=== PATIENT | female | born 1980 | race Caucasian/White ===

== ENCOUNTER 2019-09-04 17:44 | Emergency (ER) | payer BC ==
[2019-09-04 17:48] VITALS: BP 123/90; PULSE 126; TEMP 97.6
[2019-09-04] MEDS ORDERED: HYDROcodone/APAP 5-325MG 1 EACH TAB PO STA (17:57)
--- NOTE | 2019-09-04 18:20 | XR ---
EXAMINATION TYPE: XR ankle complete LT DATE OF EXAM: 09/04/2019 COMPARISON: NONE HISTORY: Pain FINDINGS: Three views of the ankle demonstrate widening the tibial fibular synchondrosis an oblique fracture in volving the distal fibula mildly displaced by approximately 2 mm. Ankle mortise is symmetric. Tiny sp ur along the medial malleolus. Remaining osseous structures intact. Plantar calcaneal spur seen. IMPRESSION: 1. Oblique fracture distal fibula with mild displacement measuring approximately 2 mm.
[2019-09-04] MEDS ORDERED: ACET/COD 300 MG/30 MG STARTER PACK 6 TAB BTL PO STA (18:38)
--- NOTE | 2019-09-04 18:40 | ED ---
Lower Extremity Injury HPI - General Chief Complaint: Extremity Injury, Lower Stated Complaint: left ankle injury Time Seen by Provider: 09/04/19 17:52 Source: patient, RN notes reviewed Mode of arrival: wheelchair Limitations: no limitations - History of Present Illness Initial Comments: 29-year-old female presents emergency from chief complaint of left ankle injury. Patient states she twisted her ankle when she fell down stairs on the grass. Patient denies any head injury no loss conscious. She recommended to left lateral ankle pain no prior fractures. - Related Data Previous Rx's Medication Instructions Recorded Ibuprofen [Motrin] 600 mg PO Q8HR PRN #20 tab 09/04/19 Allergies Allergy/AdvReac Type Severity Reaction Status Date / Time No Known Allergies Allergy Verified 09/04/19 17:46 Review of Systems ROS Statement: Those systems with pertinent positive or pertinent negative responses have been documented in the HPI. ROS Other: All systems not noted in ROS Statement are negative. Past Medical History Past Medical History: Diabetes Mellitus, Hypertension History of Any Multi-Drug Resistant Organisms: None Reported Past Surgical History: Section Past Psychological History: No Psychological Hx Reported Smoking Status: Never smoker Past Alcohol Use History: Occasional Past Drug Use History: None Reported General Exam Limitations: no limitations General appearance: alert, in no apparent distress Head exam: Present: atraumatic, normocephalic, normal inspection Eye exam: Present: normal appearance, PERRL, EOMI. Absent: scleral icterus, conjunctival injection, periorbital swelling Respiratory exam: Present: normal lung sounds bilaterally. Absent: respiratory distress, wheezes, rales, rhonchi, stridor Cardiovascular Exam: Present: regular rate, normal rhythm, normal heart sounds. Absent: systolic murmur, diastolic murmur, rubs, gallop, clicks Extremities exam: Present: other (Tenderness to left lateral malleoli region moderate swelling and ecchymosis, no foot tenderness no proximal tib-fib tenderness) Course Vital Signs 09/04/19 17:46 Temperature 97.6 F Pulse Rate 126 H Respiratory 24 Rate Blood Pressure 123/90 O2 Sat by Pulse 100 Oximetry Procedures - Orthopedic Splinting/Casting Injury #1 Side: left Lower Extremity Injury Location: short leg, ankle Lower Extremity Immobilizer: posterior splint, synthetic pre-padded splint Other Orthopedic Equipment: crutches Medical Decision Making - Medical Decision Making X-ray shows oblique fracture the distal fibula on the left Disposition Clinical Impression: Closed fracture of left distal fibula Disposition: HOME SELF-CARE Condition: Stable Instructions (If sedation given, give patient instructions): Ankle Fracture (ED) Additional Instructions: Please return to the Emergency Department if symptoms worsen or any other concerns. Prescriptions: Ibuprofen [Motrin] 600 mg PO Q8HR PRN #20 tab PRN Reason: Pain Is patient prescribed a controlled substance at d/c from ED?: No Referrals: Marcelle Urbina MD [Primary Care Provider] - 1-2 days Eben Johnson DO [Doctor of Osteopathic Medicine] - 1-2 days Time of Disposition: 18:40
[2019-09-04 19:12] VITALS: RESP 17
== END 2019-09-04 19:12 | disposition home or self-care (01) ==
LOC: EC 17:44
DX: S82.832A Other fracture of upper and lower end of left fibula, initial encounter for closed fracture (principal); X50.1XXA Overexertion from prolonged static or awkward postures, initial encounter; Y92.59 Other trade areas as the place of occurrence of the external cause
CPT/HCPCS: 29515; 99283

== ENCOUNTER 2019-09-10 08:47 | Day surgery (SDC) | payer BC ==
[2019-09-08 15:51] VITALS: BMI 38.6
--- NOTE | 2019-09-09 20:29 | HP ---
HISTORY AND PHYSICAL DATE OF SURGERY: 09/10/2019 Ginny Hardy is a 38-year-old patient seen with a displaced left ankle lateral malleolar fracture along with a syndesmotic injury to the left ankle. I recommended open reduction, internal fixation of left ankle lateral malleolar fracture with repair, syndesmotic injury. I reviewed the procedure, risks, complications, benefits, recovery. She was agreeable. Consent was obtained. PAST MEDICAL HISTORY: Hypertension, insulin-dependent diabetes, hyperlipidemia. PAST SURGICAL HISTORY: Noncontributory. DAILY MEDICATIONS: Amlodipine, Humalog, Lipitor, lisinopril. ALLERGIES: NONE. SOCIAL HISTORY: She denies current tobacco use. PHYSICAL EVALUATION OF THE LEFT ANKLE: There is diffuse swelling, tenderness along the lateral joint line, tenderness along the syndesmotic area, limited range of motion of the ankle secondary to pain. No significant tenderness along the medial malleolus. Distal neurovascular exam intact. Homans and Josias are both negative. RADIOGRAPHS: Radiographs of the left ankle revealed a displaced lateral malleolar fracture with a syndesmotic injury and mortise widening. IMPRESSION: 1. Left ankle displaced lateral malleolar fracture with syndesmotic injury. 2. Hypertension. 3. Hyperlipidemia. 4. Insulin-dependent diabetes. PLAN: Open reduction, internal fixation of left ankle lateral malleolar fracture with repair of the syndesmosis. MMODL / IJN: [id number] /
[~2019-09-10 08:47] MED LIST: LIDOCAINE 1% (10MG/ML) FOR IV START INTRADERMA PRN; METOCLOPRAMIDE 5 MG/ML 2 ML VIAL IVP PRN; MIDAZOLAM 2 MG/2 ML VIAL IV PRN
[2019-09-10 09:44] LABS: Glucose,Whole Blood 194 mg/dL (75-99)
[2019-09-10] MEDS: LACTATED RINGERS 1,000 ML IV SCH ×2 (09:46→10:57)
[2019-09-10] MEDS: DEXAMETHASONE SOD PHOSPHATE 10 MG/ML 1 ML VIAL IV ONE ×2 (10:07→13:25)
[2019-09-10] MEDS: ONDANSETRON 4 MG/2 ML VIAL IVP ONE ×2 (10:07→13:25)
[2019-09-10] MEDS ORDERED: SCOPOLAMINE 1.5MG/72HR PATCH TRANSDERM ONE (10:08)
[2019-09-10 10:10] LABS: African American GFR (CKD) >90 (>60 ml/min/1.73 sqM); Anion Gap 10 mmol/L; Blood Urea Nitrogen 11 mg/dL (7-17); Carbon Dioxide 24 mmol/L (22-30); Chloride 108 mmol/L (98-107); Non-African American GFR(CKD) >90 (>60 ml/min/1.73 sqM); Sodium 142 mmol/L (137-145)
[2019-09-10] MEDS ORDERED: fentaNYL (PF) 50 MCG/ML 2 ML AMP IVP ONE ×2 (10:28→10:33)
[2019-09-10] MEDS ORDERED: MIDAZOLAM 2 MG/2 ML VIAL IVP ONE ×2 (10:28→10:33)
[2019-09-10] MEDS ORDERED: MIDAZOLAM 2 MG/2 ML VIAL ONE (10:56)
[2019-09-10] MEDS ORDERED: LIDOCAINE 1% INJ 10MG/ML (20 ML MDV) ONE (10:56)
[2019-09-10] MEDS ORDERED: PROPOFOL 10 MG/ML 20 ML VIAL IV ONE (10:56)
[2019-09-10] MEDS ORDERED: ROPIVACAINE 5 MG/ML 30 ML VIAL ONE (10:56)
[2019-09-10] MEDS ORDERED: SUCCINYLCHOLINE CHLORIDE 100 MG/5 ML SYR IV ONE (10:56)
[2019-09-10] MEDS ORDERED: fentaNYL (PF) 50 MCG/ML 2 ML AMP ONE (10:56)
[2019-09-10] MEDS ORDERED: HYDROmorphone (PF) 1 MG/ML ONE (10:56)
[2019-09-10] MEDS ORDERED: ceFAZolin 1,000 MG in SODIUM CHLORIDE 0.9% 1,000 ML IRRIGATION ONE (11:25)
[2019-09-10] MEDS ORDERED: LACTATED RINGERS 1,000 ML IV ONE (11:34)
[2019-09-10] MEDS ORDERED: HYDROmorphone 0.5 MG/0.5 ML SYRINGE IVP PRN (12:07)
[2019-09-10] MEDS ORDERED: HYDROmorphone 1 MG/ML 1 ML SYRINGE IVP PRN (12:07)
[2019-09-10] MEDS ORDERED: ONDANSETRON 4 MG/2 ML VIAL IVP PRN (12:07)
--- NOTE | 2019-09-10 12:08 | FL ---
EXAMINATION TYPE: FL guidance operating room, XR ankle limited LT DATE OF EXAM: 09/10/2019 CLINICAL HISTORY: Left ankle fracture. TECHNIQUE: Fluoroscopy. Limited 2 views left ankle. COMPARISON: Left ankle xray 6 days ago. Left ankle x-ray 2 days ago. FINDINGS: Fluoroscopic guidance was provided during open reduction and internal fixation procedure p erformed by Dr. Johnson. A total of 9 seconds of fluoroscopic time was utilized during the procedu re and 3 spot fluoroscopic intraoperative images are acquired. Images acquired show placement of a lateral fixating plate through fracture of the lateral malleolus with suspected an additional radiolucent distal tibial fibular fixating screw. Some ankle mortise asy mmetry remains present. IMPRESSION: As Above.
[2019-09-10] MEDS ORDERED: hydrOXYzine PAMOATE 25 MG CAP PO PRN (12:10)
[2019-09-10] MEDS ORDERED: HYDROcodone/APAP 7.5-325MG 1 EACH TAB PO PRN ×2 (12:10→12:11)
--- NOTE | 2019-09-10 12:17 | P.OP ---
Date of Procedure: 09/10/19 Preoperative Diagnosis: Displaced left ankle lateral malleolus fracture with syndesmotic disruption and mortise widening Postoperative Diagnosis: Same Procedure(s) Performed: 1. Open reduction and internal fixation left ankle lateral malleolus fracture 2. Open reduction internal fixation left ankle syndesmosis Implants: 1. Arthrex 6 hole one third semitubular plate with 5-appropriate length cortical and cancellus screws 2. Arthrex syndesmosis tight rope XP Endobutton's Anesthesia: GETA, regional (Attempted adductor canal block), local Surgeon: Eben Johnson Chief Of Surgery #1: Abraham Lew Estimated Blood Loss (ml): 11 Pathology: none sent Condition: stable Disposition: PACU Indications for Procedure: 38-year-old patient seen with left ankle displaced lateral malleolar fracture with concomitant syndesmotic injury. I recommended ORIF left ankle lateral malleolar fracture with repair of the syndesmotic injury. Patient was agreeable and consent was obtained. Operative Findings: See description of procedure Description of Procedure: The patient was taken to the operative suite. The patient did receive a adductor canal block which did not seem to be working well. The patient underwent a general anesthetic by the department of anesthesia. The patient did received preoperative IV antibiotics. A well-padded tourniquet was placed proximal left thigh. The left lower extremity was prepped and draped in the normal sterile orthopedic fashion. The extremity was elevated and tourniquet insufflated to 300. A standard lateral incision was made sharply through skin. We carefully bluntly dissected down the fracture site. Periosteal elevation was utilized to define the fracture. The displaced lateral lateral malleolar fracture was now reduced and held in position with [id number] reduction bone clamp. I chose a Arthrex 6-hole one third semitubular plate and appropriately contoured. It was secured to the lateral malleolus. I now drilled 2 holes proximally and distally and insert appropriate length cortical/cancellous screws all of which had good bite and fixation. The C-arm was brought into the operative field this point confirming adequate positioning of our internal fixation and adequate reduction of the lateral malleolar fracture. At this point we drilled a guidewire across the third distal screw hole at about a 30 angle into the tibia. We now inserted our cannulated drill bit and reamed over that guidewire. I now held the ankle in a neutral position through the entire process and now passed my Arthrex tight rope XP implant exiting out the medial aspect of the distal tibia. We now flipped the button and retrieve the insertion handle back. I now see was the Endobutton into the lateral plate hole. I now tensioned and the sutures utilizing the tensioning handles. We now checked our construct under image intensification and noted zoroastrianism of the mortise with good stability. The suture ends were clipped. I now introduced one final screw through the third most proximal hole and insert appropriate length cortical screw. I now review the entire construct under AP lateral and oblique intraoperative imaging and noted adequate positioning of the fracture and hardware in good zoroastrianism of the mortise. Spot films were obtained to document that. The wound was irrigated. The subcutaneous soft tissues were repaired with 2-0 Vicryl. The skin was approximated with skin ben. The wound was infiltrated with 20 mL quarter percent plain Marcaine for postoperative analgesia.. Sterile dressings were applied. The tourniquet was released with good immediate capillary refill the entire foot and digits noted. The patient is now placed into a modified bulky Fleming splint with ankle in position. The patient was then awakened, transferred to recovery stable condition. Dewayne MOODY assisted procedure.
[2019-09-10] MEDS ORDERED: ONDANSETRON ODT 4 MG TAB PO ONE (12:32)
[2019-09-10] MEDS: HYDROmorphone 0.5 MG/0.5 ML SYRINGE IVP PRN ×3 (12:32→13:21)
[2019-09-10] MEDS ORDERED: KETOROLAC 30 MG/ML 1 ML VIAL IVP ONE (12:33)
--- NOTE | 2019-09-10 12:36 | P.ANPRN ---
Procedure Note - Anesthesia - Nerve Block Performed Left Adductor Canal Single Time Out Performed: Yes (1026) Date of Procedure: 09/10/19 Procedure Start Time: 10:28 Procedure Stop Time: 10:33 Location of Patient: PreOp Indication: Acute Post-Operative Pain, Requested by Surgeon Specifically requested for management of pain by DrEdgar: Eben Johnson Sedation Type: Sedate with meaningful contact maintained Preparation: Sterile Prep Position: Supine Catheter: None Needle Types: Pajunk Needle Gauge: 20 (4in) Ultrasound used to visualize needle placement: Yes Ultrasound used to observe medication spread: Yes Injectate: 0.5% Ropivacaine (see comment for volume) (15cc) Blood Aspirated: No Pain Paresthesia on Injection Noted: No Resistance on Injection: Normal Image Stored and Saved: Yes Events: Uneventful and Well Tolerated Left Popliteal Single Time Out Performed: Yes (102) Date of Procedure: 09/10/19 Procedure Start Time: 10:34 Procedure Stop Time: 10:38 Location of Patient: PreOp Indication: Acute Post-Operative Pain, Requested by Surgeon Specifically requested for management of pain by DrEdgar: Eben Johnson Sedation Type: Sedate with meaningful contact maintained Preparation: Sterile Prep Position: Supine Needle Types: Pajunk Needle Gauge: 20 (4in) Ultrasound used to visualize needle placement: Yes Ultrasound used to observe medication spread: Yes Injectate: 0.5% Ropivacaine (see comment for volume) (15cc) Blood Aspirated: No Pain Paresthesia on Injection Noted: No Resistance on Injection: Normal Image Stored and Saved: Yes Events: Uneventful and Well Tolerated
[2019-09-10 13:00] LABS: Glucose,Whole Blood 205 mg/dL (75-99)
[2019-09-10] MEDS ORDERED: INSULIN ASPART (NovoLOG) 100 UNIT/ML VIAL SQ ONE (13:04)
[2019-09-10 17:08] LABS: Glucose,Whole Blood 244 mg/dL (75-99)
[2019-09-10] MEDS: traMADol 50 MG TAB PO SCH ×2 (17:16→21:16)
[2019-09-10] MEDS: INSULN ASP PRT/INSULIN ASPART 100 UNIT/ML 10 ML VIAL SQ SCH (17:16)
[2019-09-10 20:49] LABS: Glucose,Whole Blood 204 mg/dL (75-99)
[2019-09-10] MEDS ORDERED: LISINOPRIL 20 MG TAB PO SCH (21:00)
[2019-09-10] MEDS ORDERED: INSULIN DETEMIR (LEVEMIR) 100 UNIT/ML SYR SQ SCH (21:00)
[2019-09-10] MEDS ORDERED: ATORVASTATIN 20 MG TAB PO SCH (21:00)
[2019-09-10] MEDS ORDERED: PANTOPRAZOLE 40 MG TABLET PO SCH (21:00)
--- NOTE | 2019-09-10 23:27 | P.CONS ---
History of Present Illness - Reason for Consult Consult date: 09/10/19 Medical management of hypertension - Chief Complaint Left ankle surgery - History of Present Illness Patient is a 38-year-old female with a known history of diabetes type 2 insulin- dependent, hypertension, GERD who recently had a mechanical fall, stable from the stairs at home last Saturday and had fracture of the left ankle lateral malleolus. Patient recently finished antibiotic course for tooth infection after her wisdom teeth were extracted. Patient underwent 1. Open reduction and internal fixation left ankle lateral malleolus fracture 2. Open reduction internal fixation left ankle syndesmosis Currently patient says that her pain is controlled. No complaints of chest pain or shortness of breath. No nausea vomiting or abdominal pain. No dysuria or hematuria. Blood sugar is slightly elevated. No fever no chills. No cough or sputum production. Past Medical History: Diabetes Mellitus, GERD/Reflux, Hypertension Additional Past Medical History / Comment(s): Swelling L foot and ankle. States has been on antbx.'s for last few weeks- finished her last dose on 09/07/19 because of an infection after her wisdom teeth were extracted. Instructed to call Dr. Johnson to let him know. History of Any Multi-Drug Resistant Organisms: None Reported Past Surgical History: Section Additional Past Surgical History / Comment(s): [place] teeth Past Anesthesia/Blood Transfusion Reactions: No Reported Reaction Past Psychological History: No Psychological Hx Reported Smoking Status: Never smoker Past Alcohol Use History: Occasional Past Drug Use History: None Reported Review of Systems Constitutional: Patient denies any fever or chills . No generalized weakness or weight loss. Abdomen: Patient denied nausea vomiting and diarrhea and abdominal pain. Cardiovascular: Patient denies any chest pain or short of breath no palpitations. Respiratory: patient denied any cough is from production. No shortness of breath Neurologic: Patient denied any numbness or tingling headache. Musculoskeletal: Patient denies any complaints of joint swelling or deformity. Left ankle pain. Skin: Negative Psychiatric: Negative Endocrine: No heat or cold intolerance. No recent weight gain. Genitourinary: No dysuria or hematuria. All other 14 point ROS negative except the above Past Medical History Past Medical History: Diabetes Mellitus, GERD/Reflux, Hypertension Additional Past Medical History / Comment(s): Swelling L foot and ankle. States has been on antbx.'s for last few weeks- finished her last dose on 09/07/19 because of an infection after her wisdom teeth were extracted. Instructed to call Dr. Johnson to let him know. History of Any Multi-Drug Resistant Organisms: None Reported Past Surgical History: Section Additional Past Surgical History / Comment(s): [place] teeth Past Anesthesia/Blood Transfusion Reactions: No Reported Reaction Past Psychological History: No Psychological Hx Reported Smoking Status: Never smoker Past Alcohol Use History: Occasional Past Drug Use History: None Reported - Past Family History Mother Family Medical History: Deep Vein Thrombosis (DVT) Medications and Allergies Home Medications Medication Instructions Recorded Confirmed Type Atorvastatin [Lipitor] 20 mg PO HS 09/08/19 09/10/19 History Ibuprofen [Motrin] 600 mg PO Q8HR PRN 09/08/19 09/10/19 History Insulin Glargine,Hum.rec.anlog 64 units SQ HS 09/08/19 09/10/19 History [Toujeo Solostar] Insulin Lispro Protamin/Lispro 60 unit SQ TID 09/08/19 09/10/19 History [humaLOG Mix 75-25 Kwikpen] Lisinopril 20 mg PO HS 09/08/19 09/10/19 History Pantoprazole [Protonix] 40 mg PO HS 09/08/19 09/10/19 History amLODIPine BESYLATE 10 mg PO DAILY 09/08/19 09/10/19 History Allergies Allergy/AdvReac Type Severity Reaction Status Date / Time No Known Allergies Allergy Verified 09/10/19 09:54 Physical Exam Vitals: Vital Signs Temp Pulse Pulse Resp BP Pulse Ox 09/10/19 12:50 92 16 135/81 95 09/10/19 12:35 99 16 140/78 99 09/10/19 12:20 97 16 135/74 99 09/10/19 12:05 97.7 F 101 H 18 135/78 100 09/10/19 10:40 97 20 118/75 94 L 09/10/19 09:35 98.6 F 108 H 20 130/74 97 Intake and Output 09/09/19 09/10/19 09/10/19 22:59 06:59 14:59 Intake Total 1801 Output Total 11 Balance 1790 Intake: IV 1801 Output: Estimated Blood Loss 11 Other: Weight 107 kg PHYSICAL EXAMINATION: Patient is lying in the bed comfortably, no acute distress, awake alert and oriented.. HEENT: Normocephalic. Neck is supple. Pupils reactive. Nostrils clear. Oral cavity is moist. Ears reveal no drainage. Neck reveals no JVD, carotid bruits, or thyromegaly. CHEST EXAMINATION: Trachea is central. Symmetrical expansion. Lung chen clear to auscultation and percussion. CARDIAC: Normal S1, S2 with no gallops. No murmurs ABDOMEN: Soft. Bowel sounds normal. No organomegaly. No abdominal bruits. Extremities: reveal no edema. No clubbing or cyanosis Neurologically awake, alert, oriented x3 with well-coordinated movements. No focal deficits noted Skin: No rash or skin lesions. Psychiatric: Coperative. Nonsuicidal Musculoskeletal: No joint swelling or deformity. Left ankle cast in place.. Results CBC & Chem 7: 09/10/19 09:55 Labs: Abnormal Lab Results - Last 24 Hours (Table) 09/10/19 09/10/19 09/10/19 Range/Units 09:35 09:55 12:58 Chloride 108 H (98-107) mmol/L Creatinine 0.51 L (0.52-1.04) mg/dL POC Glucose (mg/dL) 194 H 205 H (75-99) mg/dL Assessment and Plan Assessment: Patient is status post ORIF of left ankle lateral malleolus fracture and ORIF of left ankle syndesmosis. Postoperative day 0 Diabetes type 2 insulin-dependent with mild hyperglycemia. Hypertension. On Norvasc and lisinopril at home. Hyperlipidemia. On atorvastatin. GERD continue PPI. Morbid obesity with BMI 40.5 DVT prophylaxis. Plan: Patient will be short and back on her insulin regimen with Levemir 80 units at bedtime along with NovoLog 75 x 25 60 units 3 times a day before meals as per her home dose. Dose was reduced prior to surgery to 60 units. Continue to monitor CBC before meals and at bedtime. Continue the pain management and bowel regimen. Incentive spirometry. Follow up closely. Further recommendations based on the clinical course. Follow-up CBC and BMP tomorrow Thank you for your consult. Time with Patient: Greater than 30
[2019-09-11] MEDS ORDERED: INSULIN DETEMIR (LEVEMIR) 100 UNIT/ML SYR SQ SCH (04:35)
[2019-09-11] MEDS: LACTATED RINGERS 1,000 ML IV SCH (06:55)
[2019-09-11 07:06] LABS: Glucose,Whole Blood 96 mg/dL (75-99)
[2019-09-11] MEDS: INSULN ASP PRT/INSULIN ASPART 100 UNIT/ML 10 ML VIAL SQ SCH ×2 (07:30→12:54)
[2019-09-11 07:48] VITALS: BP 119/73; PULSE 98; RESP 16; TEMP 98.6
[2019-09-11] MEDS: traMADol 50 MG TAB PO SCH ×2 (08:33→13:22)
[2019-09-11] MEDS ORDERED: amLODIPine 10 MG TAB PO SCH (09:00)
[2019-09-11 09:14] LABS: Basophils # (A) 0.1 k/uL (0-0.2); Basophils % (A) 0 %; Eosinophils # (A) 0.1 k/uL (0-0.7); Eosinophils % (A) 1 %; HGB 12.4 gm/dL (11.4-16.0); Lymphocytes # (A) 2.3 k/uL (1.0-4.8); Lymphocytes % (A) 20 %; MCH 28.6 pg (25.0-35.0); MCHC 32.6 g/dL (31.0-37.0); MCV 87.9 fL (80.0-100.0); Mean Platelet Volume 7.2; Monocytes # (A) 0.8 k/uL (0-1.0); Monocytes % (A) 6 %; Neutrophils # (A) 8.2 k/uL (1.3-7.7); Neutrophils % (A) 70 %; Platelet Count 377 k/uL (150-450); RBC 4.33 m/uL (3.80-5.40); RDW 11.9 % (11.5-15.5); WBC 11.7 k/uL (3.8-10.6)
[2019-09-11 09:26] LABS: African American GFR (CKD) >90 (>60 ml/min/1.73 sqM); Anion Gap 6 mmol/L; Blood Urea Nitrogen 10 mg/dL (7-17); Carbon Dioxide 27 mmol/L (22-30); Chloride 105 mmol/L (98-107); Glucose 93 mg/dL (74-99); Non-African American GFR(CKD) >90 (>60 ml/min/1.73 sqM); Potassium 4.3 mmol/L (3.5-5.1); Sodium 138 mmol/L (137-145)
--- NOTE | 2019-09-11 11:17 | P.PN ---
Subjective Progress Note Date: 09/11/19 Principal diagnosis: s/p ORIF left ankle lateral malleolus fracture, syndesmotic ligament repair Patient evaluated bedside, she is resting comfortably. She has noticed an increase in pain in the ankle this morning. She remains nonweightbearing. She denies any fevers or chills. Objective - Vital Signs Vital signs: Vital Signs Temp 98.6 F 09/11/19 07:00 Pulse 98 09/11/19 07:00 Resp 16 09/11/19 07:00 BP 119/73 09/11/19 07:00 Pulse Ox 97 09/11/19 07:00 Intake & Output 09/10/19 09/11/19 09/11/19 18:59 06:59 18:59 Intake Total 1801 50 Output Total 11 Balance 1790 50 Weight 107 kg Intake: IV 1801 Intake, IV Titration 50 Amount ceFAZolin 2 gm In Sodium 50 Chloride 0.9% 50 ml @ 100 mls/hr IVPB Q8H JAVIER Rx#: [id number] Output: Estimated Blood Loss 11 Other: Voiding Method Toilet Toilet # Voids 1 1 - Exam Right lower extremity: Postop splint is in good position and condition. Sensation to light touch proximal and distal to splint are intact. Cap refill is less than 2 seconds. - Labs CBC & Chem 7: 09/11/19 06:57 09/11/19 06:57 Labs: Abnormal Lab Results - Last 24 Hours (Table) 09/10/19 09/10/19 09/10/19 Range/Units 12:58 17:05 20:48 WBC (3.8-10.6) k/uL Neutrophils # (1.3-7.7) k/uL Creatinine (0.52-1.04) mg/dL POC Glucose (mg/dL) 205 H 244 H 204 H (75-99) mg/dL 09/11/19 09/11/19 Range/Units 06:57 06:57 WBC 11.7 H (3.8-10.6) k/uL Neutrophils # 8.2 H (1.3-7.7) k/uL Creatinine 0.49 L (0.52-1.04) mg/dL POC Glucose (mg/dL) (75-99) mg/dL Assessment and Plan Plan: Assessment: Postop day #1 status post ORIF left ankle lateral malleolus fracture, syndesmotic ligament repair Plan: Pain control, plan for discharge home on oral medication GI and DVT prophylaxis, aspirin 325 mg daily Wound care instructions were discussed Weightbearing activity level and restrictions discussed Stable for discharge home today Time with Patient: Less than 30
--- NOTE | 2019-09-11 11:23 | P.DS ---
Providers Date of admission: 09/10/2019 Expected date of discharge: 09/11/19 Attending physician: Eben Johnson Consults: 09/10/19 12:07 Consult Physician Routine Consulting Provider: Ron Hay Consult Reason/Comments: medical management Do you want consulting provider notified?: Yes Primary care physician: Marcelle Urbina [facility] Course: Date of admission: 09/10/2019 Date of discharge: 09/11/2019 Admission diagnosis: Status post ORIF left ankle lateral malleolus fracture, syndesmotic ligament repair Discharge diagnosis: Same Attending physician: Dr. Johnson Surgical procedures: ORIF left ankle lateral malleolus fracture, syndesmotic ligament repair Brief history: Patient is a 38-year-old female who is evaluated in the outpatient setting for an injury that occurred to her left ankle. It was determined she would need surgical fixation, she was scheduled for surgery with Dr. Johnson on 09/10/2019. Hospital course: Details of patient's surgery can be found in operative report. Patient tolerated the procedure well and was subsequently transported to orthopedic floor. Patient's orthopeidc and medical care was provided daily. Patient had daily laboratory tests performed for evaluation of overall blood counts. Patient had daily physical therapy to include strengthening range of motion as well as education with walker ambulation. Patient was noted to have a relatively uneventful postoperative course. Patient reported satisfactory pain control with oral pain medications by postoperative day 0. Patient showed satisfactory progress with physical therapy. Patient moved steadily through the program and had no difficulty meeting the goals by postoperative day 1. Given patient's otherwise satisfactory course and having met physical therapy goals, plan is to discharge patient home on postoperative day 1. Discharge condition/disposition: Patient will be discharged home in stable condition. Discharge medications: Instructions are given on resumption of patient's normal daily medications per primary care recommendation, in addition patient will be prescribed Avoca 7.5 mg/325 mg, aspirin 325 mg. Discharge instructions: 1. Wound care and infection precautions, keep incision dry and covered while showering, no lotions, creams, moisturizers. No soaking, tubs, pools, hottubs. Do not scrub over the incision. 2. Nonweightbearing, utilize knee scooter 3. Ice and elevate when necessary. Do not exceed 20 minutes per hour with ice pack. 4. Utilize compression sleeve until seen at first follow up appointment. 5. Pain meds and anticoagulants per prescription. 6. Pain medication has potential to cause constipation. Increase oral fluid and fiber intake. Contact primary care provider if you have not had a bowel movement within 48 hours after discharge 7. Follow up in office at 2 weeks postop with Dewayne Lew PA-C Procedures: Open reduction internal fixation left ankle lateral malleolus fracture, syndesmotic ligament repair Patient Condition at Discharge: Good Plan - Discharge Summary Discharge Rx Participant: No New Discharge Prescriptions: New Aspirin 325 mg PO DAILY #30 tab HYDROcodone/APAP 7.5-325MG [Avoca 7.5] 1 - 2 each PO Q6HR PRN #56 tab PRN Reason: Pain No Action amLODIPine BESYLATE 10 mg PO DAILY Pantoprazole [Protonix] 40 mg PO HS Ibuprofen [Motrin] 600 mg PO Q8HR PRN PRN Reason: Pain Atorvastatin [Lipitor] 20 mg PO HS Lisinopril 20 mg PO HS Insulin Lispro Protamin/Lispro [humaLOG Mix 75-25 Kwikpen] 60 unit SQ TID Insulin Glargine,Hum.rec.anlog [Toujeo Solostar] 64 units SQ HS Discharge Medication List Atorvastatin [Lipitor] 20 mg PO HS 09/08/19 [History] Ibuprofen [Motrin] 600 mg PO Q8HR PRN 09/08/19 [History] Insulin Glargine,Hum.rec.anlog [Toujeo Solostar] 64 units SQ HS 09/08/19 [His tory] Insulin Lispro Protamin/Lispro [humaLOG Mix 75-25 Kwikpen] 60 unit SQ TID 09/08/19 [History] Lisinopril 20 mg PO HS 09/08/19 [History] Pantoprazole [Protonix] 40 mg PO HS 09/08/19 [History] amLODIPine BESYLATE 10 mg PO DAILY 09/08/19 [History] Aspirin 325 mg PO DAILY #30 tab 09/11/19 [Rx] HYDROcodone/APAP 7.5-325MG [Avoca 7.5] 1 - 2 each PO Q6HR PRN #56 tab 09/11/19 [Rx] Follow up Appointment(s)/Referral(s): Abraham Lew PAC [PHYSICIAN CERTIFIED NURSING ASSISTANT] - 2 Weeks Activity/Diet/Wound Care/Special Instructions: Orthopedic discharge instructions: 1. Resume home medications 2. Pain medication as needed, [id number] Tylenol and Motrin as needed also 3. Ice and elevate often 4. Nonweightbearing left lower extremity 5. Do not remove splint, Dry and covered while showering 6. Plan for follow-up in 2 weeks Discharge Disposition: HOME WITH HOME HEALTH SERVICES
[2019-09-11 11:36] LABS: Glucose,Whole Blood 80 mg/dL (75-99)
--- NOTE | 2019-09-11 12:26 | P.CONS ---
History of Present Illness - History of Present Illness This is a pleasant 38 years old female with past medical history of diabetes mellitus on insulin, gastroesophageal reflux disease, hypertension, she was admitted for left ankle fracture, she is status post open reduction and internal fixation on 09/10/2019, today is postoperative day 1, her pain is controlled especially at rest and getting a little bit exacerbated with movement. Vitals are stable. Patient denies any other complaints, no chest pain or dyspnea, no abdominal pain, no change in urine habits, she is passing gases but not have bowel movements his surgery it. She is tolerating diet well. His unremarkable except for mild leukocytosis is 11.7k, mostly reactive from surgery, her sugar is controlled 80-96 Review of Systems CONSTITUTIONAL: No fever, no malaise, no fatigue. HEENT: No recent visual problems or hearing problems. Denied any sore throat. CARDIOVASCULAR: No orthopnea, PND, no palpitations, no syncope. PULMONARY: No shortness of breath, no cough, no hemoptysis. GASTROINTESTINAL: No diarrhea, no nausea, no vomiting, no abdominal pain. Normoactive bowel sounds. NEUROLOGICAL: No headaches, no weakness, no numbness. HEMATOLOGICAL: Denies any bleeding or petechiae. GENITOURINARY: Denies any burning micturition, frequency, or urgency. MUSCULOSKELETAL/RHEUMATOLOGICAL: Denies any joint pain, swelling, or any muscle pain. ENDOCRINE: Denies any polyuria or polydipsia. Past Medical History Past Medical History: Diabetes Mellitus, GERD/Reflux, Hypertension Additional Past Medical History / Comment(s): Swelling L foot and ankle. States has been on antbx.'s for last few weeks- finished her last dose on 09/07/19 because of an infection after her wisdom teeth were extracted. Instructed to call Dr. Johnson to let him know. History of Any Multi-Drug Resistant Organisms: None Reported Past Surgical History: Section Additional Past Surgical History / Comment(s): Tatums teeth Past Anesthesia/Blood Transfusion Reactions: No Reported Reaction Past Psychological History: No Psychological Hx Reported Smoking Status: Never smoker Past Alcohol Use History: Occasional Past Drug Use History: None Reported - Past Family History Mother Family Medical History: Deep Vein Thrombosis (DVT) Medications and Allergies Home Medications Medication Instructions Recorded Confirmed Type Atorvastatin [Lipitor] 20 mg PO HS 09/08/19 09/10/19 History Ibuprofen [Motrin] 600 mg PO Q8HR PRN 09/08/19 09/10/19 History Insulin Glargine,Hum.rec.anlog 64 units SQ HS 09/08/19 09/10/19 History [Toumikeo Solostar] Insulin Lispro Protamin/Lispro 60 unit SQ TID 09/08/19 09/10/19 History [humaLOG Mix 75-25 Kwikpen] Lisinopril 20 mg PO HS 09/08/19 09/10/19 History Pantoprazole [Protonix] 40 mg PO HS 09/08/19 09/10/19 History amLODIPine BESYLATE 10 mg PO DAILY 09/08/19 09/10/19 History Aspirin 325 mg PO DAILY #30 tab 09/11/19 Rx HYDROcodone/APAP 7.5-325MG [Cactus 1 - 2 each PO Q6HR PRN #56 tab 09/11/19 Rx 7.5] Allergies Allergy/AdvReac Type Severity Reaction Status Date / Time No Known Allergies Allergy Verified 09/10/19 09:54 Physical Exam Vitals: Vital Signs Temp Pulse Pulse Resp BP Pulse Ox 09/11/19 07:00 98.6 F 98 16 119/73 97 09/11/19 04:00 87 18 09/11/19 02:05 98.0 F 87 18 104/66 99 09/11/19 00:00 105 H 18 09/10/19 21:08 98.3 F 105 H 18 132/78 95 09/10/19 20:00 99 18 09/10/19 14:45 89 133/84 95 09/10/19 14:30 90 131/87 96 09/10/19 14:15 84 131/88 94 L 09/10/19 14:00 96 148/79 93 L 09/10/19 13:45 97.8 F 96 16 144/93 93 L 09/10/19 12:50 92 16 135/81 95 09/10/19 12:35 99 16 140/78 99 Intake and Output 09/10/19 09/11/19 09/11/19 22:59 06:59 14:59 Intake Total 50 Balance 50 Intake: Intake, IV Titration 50 Amount ceFAZolin 2 gm In Sodium 50 Chloride 0.9% 50 ml @ 100 mls/hr IVPB Q8H [facility] Rx#: [id number] Other: Voiding Method Toilet Toilet # Voids 1 1 GENERAL: The patient is alert and oriented x3, not in any acute distress. Well developed, well nourished. HEENT: Pupils are round and equally reacting to light. EOMI. No scleral icterus. No conjunctival pallor. Normocephalic, atraumatic. No pharyngeal erythema. No thyromegaly. CARDIOVASCULAR: S1 and S2 present. No murmurs, rubs, or gallops. PULMONARY: Chest is clear to auscultation, no wheezing or crackles. ABDOMEN: Soft, nontender, nondistended, normoactive bowel sounds. No palpable organomegaly. MUSCULOSKELETAL: No joint swelling or deformity. EXTREMITIES: No cyanosis, clubbing, or pedal edema. Left ankle and a dressing, we will leave the rest of examination to surgery primary team NEUROLOGICAL: Gross neurological examination did not reveal any focal deficits. SKIN: No rashes. No petechiae Results CBC & Chem 7: 09/11/19 06:57 09/11/19 06:57 Labs: Abnormal Lab Results - Last 24 Hours (Table) 09/10/19 09/10/19 09/10/19 Range/Units 12:58 17:05 20:48 WBC (3.8-10.6) k/uL Neutrophils # (1.3-7.7) k/uL Creatinine (0.52-1.04) mg/dL POC Glucose (mg/dL) 205 H 244 H 204 H (75-99) mg/dL 09/11/19 09/11/19 Range/Units 06:57 06:57 WBC 11.7 H (3.8-10.6) k/uL Neutrophils # 8.2 H (1.3-7.7) k/uL Creatinine 0.49 L (0.52-1.04) mg/dL POC Glucose (mg/dL) (75-99) mg/dL Assessment and Plan Assessment: Left ankle fracture status post open reduction internal fixation Diabetes mellitus, and instrument History of gastroesophageal reflux disease Hypertension Plan: This is a pleasant 58 years old female who presents with ankle fracture status post ORIF , continue with pain management and DVT prophylaxis as per primary team. Sugar is controlled. We'll recommend to monitor her white cell count. Labs and medication were reviewed.. Continue same treatment. Continue with symptomatic treatment. Resume home medication. Monitor lytes and vitals. DVT and GI prophylaxis. Further recommendations of the clinical course of the patient Patient was instructed to follow up with her PCP Dr. Ennis in one week and to check her blood cell test with her doctor and she agrees to: Make appointment Thank you for consulting us
== END 2019-09-11 14:09 | disposition home health service (06) ==
LOC: OR 08:47 → 4SSUR 12:18 → OR 09-11 14:09
PROVIDERS: ATTEND Orthopaedic Surgery
DX: S82.62XA Displaced fracture of lateral malleolus of left fibula, initial encounter for closed fracture (principal); S93.431A Sprain of tibiofibular ligament of right ankle, initial encounter; I10 Essential (primary) hypertension; E11.65 Type 2 diabetes mellitus with hyperglycemia; E78.5 Hyperlipidemia, unspecified; E66.01 Morbid (severe) obesity due to excess calories; K21.9 Gastro-esophageal reflux disease without esophagitis; D72.829 Elevated white blood cell count, unspecified; Z79.82 Long term (current) use of aspirin; Z79.4 Long term (current) use of insulin; Z79.899 Other long term (current) drug therapy; Z98.891 History of uterine scar from previous surgery; Z82.49 Family history of ischemic heart disease and other diseases of the circulatory system; Z68.41 Body mass index [BMI] 40.0-44.9, adult; W10.9XXA Fall (on) (from) unspecified stairs and steps, initial encounter; Y92.009 Unspecified place in unspecified non-institutional (private) residence as the place of occurrence of the external cause
CPT/HCPCS: 27792; 27829; 64447; 81025; 64450; 76942; 80051; 80048; 82565; 84520; 85025; 73600; C1713 ×2; J2250; J1100; J2765; J0690 ×3; J2405; J2001; J3010; J1885; J1170 ×3; J2795; J0330; J2704; 64445

== ENCOUNTER → 2020-04-18 | Outpatient (CLI) | payer BC ==
--- NOTE | 2020-04-19 11:55 | MM ---
Reason for exam: screening (asymptomatic). Baseline mammogram. Physical Findings: Nurse did not find any significant physical abnormalities on exam. MG 3D Screening Mammo W/Cad Bilateral CC and MLO view(s) were taken. The breast tissue is heterogeneously dense. This may lower the sensitivity of mammography. There is no discrete abnormality. These results were verbally communicated with the patient and result sheet given to the patient on 04/18/20. ASSESSMENT: Negative, BI-RAD 1 RECOMMENDATION: Routine screening mammogram of both breasts in 1 year.
== END | disposition home or self-care (01) ==
LOC: RADMAMWWP 13:19
PROVIDERS: ATTEND Family Medicine
DX: Z12.31 Encounter for screening mammogram for malignant neoplasm of breast (principal)
CPT/HCPCS: 77063; 77067

== ENCOUNTER → 2020-09-15 | Outpatient (CLI) | payer BC ==
[2020-09-15 14:45] LABS: Basophils # (A) 0.07 X 10*3/uL (0.00-0.10); Basophils % (A) 0.8 %; Eosinophils # (A) 0.07 X 10*3/uL (0.04-0.35); Eosinophils % (A) 0.8 %; HCT 46.4 % (37.2-46.3); HGB 15.2 g/dL (12.0-15.0); Lymphocytes # (A) 1.77 X 10*3/uL (0.90-5.00); MCH 28.1 pg (27.0-32.0); MCHC 32.8 g/dL (32.0-37.0); MCV 85.9 fL (80.0-97.0); Mean Platelet Volume 10.1 fL (9.5-12.2); Monocytes # (A) 0.69 X 10*3/uL (0.20-1.00); Monocytes % (A) 7.8 %; Neutrophils # (A) 6.12 X 10*3/uL (1.80-7.70); Neutrophils % (A) 69.2 %; Platelet Count 364 X 10*3/uL (140-440); RDW 11.9 % (11.5-14.5); WBC 8.84 X 10*3/uL (4.50-10.00)
[2020-09-15 20:15] LABS: C-Peptide 1.96 ng/mL (0.81-3.85)
[2020-09-16 05:38] LABS: African American GFR (CKD) 125.6 (60.0-200.0); Albumin 4.6 g/dL (3.80-4.90); Anion Gap 12.3 mmol/L (4.00-12.00); BUN/Creat Ratio 21.43 Ratio (12.00-20.00); Calcium 9.9 mg/dL (8.7-10.3); Carbon Dioxide 20.7 mmol/L (21.6-31.8); Chol/HDL Ratio 4.38; Globulin 2.3 g/dL (1.6-3.3); LDL Cholesterol,Calculated 95.6 mg/dL (0.0-131.0); Non-African American GFR(CKD) 108.4 (60.0-200.0); Potassium 4.5 mmol/L (3.5-5.5); Total Bilirubin 0.8 mg/dL (0.3-1.2); Total Protein 6.9 g/dL (6.2-8.2); VLDL Calculation 29.4 mg/dL (5.00-40.00)
== END | disposition home or self-care (01) ==
LOC: LABWHC1 07:34
PROVIDERS: ATTEND Internal Medicine Endocrinology, Diabetes & Metabolism
DX: Z11.59 Encounter for screening for other viral diseases (principal); E11.65 Type 2 diabetes mellitus with hyperglycemia
CPT/HCPCS: 36415; 80053; 80061; 82533; 84443; 84681; 85025; 86803

== ENCOUNTER → 2022-11-16 | Outpatient (CLI) | payer BC ==
--- NOTE | 2022-11-16 17:23 | FL ---
EXAMINATION TYPE: FL UGI air w small bowel DATE OF EXAM: 11/16/2022 COMPARISON: NONE HISTORY: 42-year-old female [id number], gastroparesis TECHNIQUE: A double contrast UGI study is performed with small bowel follow through. A total of 2 m inutes 7 seconds of fluoroscopic time was utilized during procedure and 88 images obtained. Total do se area product (DAP) in uGy*m?, mGy*cm? (or similar): 15. FINDINGS: The esophagus shows normal motility and emptying into the stomach. There is a small to moderate size hiatal hernia with moderate to severe gastroesophageal reflux elici brittni with Valsalva and positional maneuvers. There is no abnormal narrowing or stricture. No mucosal lesion or abnormal filling defect is seen. The stomach shows normal distensibility but with mild diffuse fold thickening in numerous round filli ng defects bordering on 1 cm. A few may be just over 1 cm in size. A few of these polyps show a centr al pit filling with contrast suggesting possible ulceration. No large ulcer mound is identified. The duodenal bulb and sweep are unremarkable. The small bowel study shows delayed transit time of 4 hours. There is normal mucosal fold pattern th roughout the small bowel. There is no evidence of any stricture or filling defect noted. The termin al ileum is unremarkable. IMPRESSION: 1. Oefzn-dn-vonjzqky sized sliding hiatal hernia with moderate to severe gastroesophageal reflux. 2. Numerous gastric polyps throughout the stomach. Unclear if these represent reactive hyperplastic p olyps and/or adenomatous polyps. A few of these seem to contain a central ulceration suggesting pepti c ulcer disease. Recommend direct visualization to exclude any underlying adenomatous polyps. No larg e ulcer mound is seen. 3. Somewhat delayed small bowel transit time of 4 hours. But otherwise, unremarkable appearance to th e small bowel follow-through.
--- NOTE | 2022-11-20 07:25 | MM ---
Reason for Exam: Screening (asymptomatic). Last mammogram was performed 2 year(s) and 7 month(s) ago. Patient History: Menarche at age 8. First Full-Term at age 18. Risk Values: Flory 5 year model risk: 0.6%. NCI Lifetime model risk: 7.8%. Prior Study Comparison: 04/18/2020 Bilateral Screening Mammogram, [facility]. Tissue Density: The breast tissue is heterogeneously dense. This may lower the sensitivity of mammography. Findings: Analyzed By CAD. There is no suspicious group of microcalcifications or new suspicious mass in either breast. Overall Assessment: Negative, BI-RAD 1 Management: Screening Mammogram of both breasts in [address] [facility] will attempt to contact patient to return for supplemental views and ultrasound if indicated. Patient should continue monthly self-breast exams. A clinical breast exam by your physician is recommended on an annual basis. This exam should not preclude additional follow-up of suspicious palpable abnormalities. Note on Flory scores and lifetime risk: 1. A Flory score greater than 3% is considered moderate risk. If this is the case, consider specialist referral to assess eligibility for a risk reducing agent. 2. If overall lifetime risk for the development of breast cancer is 20% or higher, the patient may qualify for future screening with alternating mammogram and breast MRI. Electronically signed and approved by: Estevan Kaur DO
== END | disposition home or self-care (01) ==
LOC: RADMAMWWP 07:19
PROVIDERS: ATTEND Family Medicine
DX: Z12.31 Encounter for screening mammogram for malignant neoplasm of breast (principal); K31.84 Gastroparesis; K44.9 Diaphragmatic hernia without obstruction or gangrene; K21.9 Gastro-esophageal reflux disease without esophagitis; K31.7 Polyp of stomach and duodenum
CPT/HCPCS: 74240; 74248; 77063; 77067

== ENCOUNTER 2024-01-15 08:40 | Emergency (ER) | payer BC ==
[2024-01-15 08:44] VITALS: TEMP 98.1
[2024-01-15] MEDS: SODIUM CHLORIDE 0.9% 1,000 ML IV STA (09:14)
[2024-01-15] MEDS: KETOROLAC 15 MG/ML 1 ML VIAL IVP STA (09:18)
[2024-01-15] MEDS: ONDANSETRON 4 MG/2 ML VIAL IVP STA (09:18)
[2024-01-15] MEDS: SODIUM CHLORIDE 0.9% 500 ML 500 ML IV STA (09:19)
[2024-01-15 09:38] LABS: Basophils # (A) 0.1 k/uL (0-0.2); Basophils % (A) 1 %; Eosinophils # (A) 0.2 k/uL (0-0.7); Eosinophils % (A) 2 %; HCT 46.4 % (34.0-46.0); HGB 15.4 gm/dL (11.4-16.0); Lymphocytes # (A) 1.4 k/uL (1.0-4.8); Lymphocytes % (A) 14 %; MCH 28.3 pg (25.0-35.0); MCHC 33.1 g/dL (31.0-37.0); MCV 85.5 fL (80.0-100.0); Mean Platelet Volume 6.9; Monocytes # (A) 0.5 k/uL (0-1.0); Monocytes % (A) 5 %; Neutrophils # (A) 7.7 k/uL (1.3-7.7); Neutrophils % (A) 77 %; Platelet Count 402 k/uL (150-450); RBC 5.42 m/uL (3.80-5.40); RDW 12.2 % (11.5-15.5)
--- NOTE | 2024-01-15 10:09 | CT ---
EXAMINATION TYPE: CT abdomen pelvis wo con DATE OF EXAM: 01/15/2024 COMPARISON: None HISTORY: Left flank pain CT DLP: 876.1 mGycm Examination of the solid and hollow viscera is limited given the lack of contrast. FINDINGS: LUNG BASES: No evidence for nodule. No evidence for infiltrate. LIVER/GB: The gallbladder is unremarkable. No space-occupying hepatic lesion. PANCREAS: No pancreatic mass identified. No inflammatory process seen. SPLEEN: No evidence for splenomegaly. No intrasplenic lesions seen. ADRENALS: No adrenal nodules identified. No evidence for thickening. KIDNEYS: 3 mm left UPJ calculus resulting in mild left-sided hydronephrosis. Additional nonobstructing calculi left kidney measuring up to 4 mm. There is sub-2 mm calculi noted overlying the lower pole of the ri ght kidney. No right-sided hydronephrosis present. No evidence for renal mass. BOWEL: Appendix has a normal appearance. No evidence of bowel obstruction. No inflammatory process. Lymph nodes: No evidence for adenopathy greater than 1 cm. Abdominal aorta: Atheromatous changes seen. No evidence for aneurysm. Genital organs: No significant abnormality. Changes of tubal ligation. Other: No significant abnormality. IMPRESSION: 3 mm left UPJ calculus resulting in mild left-sided hydronephrosis.
--- NOTE | 2024-01-15 10:30 | ED ---
Abdominal Pain HPI - General Chief Complaint: Abdominal Pain Stated Complaint: L side pain Time Seen by Provider: 01/15/24 08:45 Source: patient, RN notes reviewed Mode of arrival: wheelchair Limitations: no limitations - History of Present Illness Initial Comments: 43-year-old female presents emergency room for complaint of left-sided abdominal and flank pain. Patient states that she woke up not feeling well states that she has sudden onset of pain. Nothing really makes it feel better or feel worse. She has constant pain that does wax and wane she states she is nauseated from the pain. Patient denies any rashes no trauma no prior abdominal lissette geries. - Related Data Home Medications Medication Instructions Recorded Confirmed Atorvastatin [Lipitor] 20 mg PO HS 09/08/19 09/10/19 Ibuprofen [Motrin] 600 mg PO Q8HR PRN 09/08/19 09/10/19 Insulin Glargine,Hum.rec.anlog 64 units SQ HS 09/08/19 09/10/19 [Toujeo Solostar] Insulin Lispro Protamin/Lispro 60 unit SQ TID 09/08/19 09/10/19 [humaLOG Mix 75-25 Kwikpen] Pantoprazole [Protonix] 40 mg PO HS 09/08/19 09/10/19 amLODIPine BESYLATE 10 mg PO DAILY 09/08/19 09/10/19 lisinopriL 20 mg PO HS 09/08/19 09/10/19 Previous Rx's Medication Instructions Recorded Aspirin 325 mg PO DAILY #30 tab 09/11/19 HYDROcodone/APAP 7.5-325MG [[place] 1 - 2 each PO Q6HR PRN #56 tab 09/11/19 7.5] Ketorolac [Toradol] 10 mg PO Q8HR #15 tab 01/15/24 Ondansetron Odt [Zofran Odt] 4 mg PO Q8HR PRN #10 tab 01/15/24 Tamsulosin [Flomax] 0.4 mg PO DAILY #7 cap 01/15/24 Allergies Allergy/AdvReac Type Severity Reaction Status Date / Time No Known Allergies Allergy Verified 09/10/19 09:54 Review of Systems ROS Statement: Those systems with pertinent positive or pertinent negative responses have been documented in the HPI. ROS Other: All systems not noted in ROS Statement are negative. Past Medical History Past Medical History: Diabetes Mellitus, GERD/Reflux, Hypertension Additional Past Medical History / Comment(s): Swelling L foot and ankle. States has been on antbx.'s for last few weeks- finished her last dose on 09/07/19 because of an infection after her wisdom teeth were extracted. Instructed to call Dr. Johnson to let him know. History of Any Multi-Drug Resistant Organisms: None Reported Past Surgical History: Section Additional Past Surgical History / Comment(s): [place] teeth Past Anesthesia/Blood Transfusion Reactions: No Reported Reaction Past Psychological History: No Psychological Hx Reported Smoking Status: Never smoker Past Alcohol Use History: Occasional Past Drug Use History: None Reported - Past Family History Mother Family Medical History: Deep Vein Thrombosis (DVT) General Exam Limitations: no limitations General appearance: alert, in no apparent distress Head exam: Present: atraumatic, normocephalic, normal inspection Neck exam: Present: normal inspection. Absent: tenderness, meningismus, lymphadenopathy Respiratory exam: Present: normal lung sounds bilaterally. Absent: respiratory distress, wheezes, rales, rhonchi, stridor Cardiovascular Exam: Present: regular rate, normal rhythm, normal heart sounds. Absent: systolic murmur, diastolic murmur, rubs, gallop, clicks GI/Abdominal exam: Present: soft, tenderness, normal bowel sounds. Absent: distended, guarding, rebound, rigid Back exam: Present: CVA tenderness (L). Absent: CVA tenderness (R) Course Vital Signs 01/15/24 01/15/24 08:41 11:48 Temperature 98.1 F Pulse Rate 103 H 59 L Respiratory 18 16 Rate Blood Pressure 128/75 117/91 O2 Sat by Pulse 100 99 Oximetry Medical Decision Making - Medical Decision Making Was pt. sent in by a medical professional or institution (, PA, [employer], urgent care, hospital, or fdc...) When possible be specific @ -No Did you speak to anyone other than the patient for history (EMS, parent, family, police, friend...)? What history was obtained from this source @ -No Did you review nursing and triage notes (agree or disagree)? Why? @ -I reviewed and agree with nursing and triage notes Were old charts reviewed (outside hosp., previous admission, EMS record, old EKG, old radiological studies, urgent care reports/EKG's, fdc records)? Report findings @ -No old charts were reviewed Differential Diagnosis (chest pain, altered mental status, abdominal pain women, abdominal pain men, vaginal bleeding, weakness, fever, dyspnea, syncope, headache, dizziness, GI bleed, back pain, seizure, CVA, palpatations, mental health, musculoskeletal)? @ -Differential Abdominal Pain Women: Appendicitis, Cholecystitis, diverticulosis, ischemic bowel, pancreatitis, hepatitis, UTI, gastroenteritis, AAA, incarcerated hernia, bowel obstruction, constipation, inflammatory bowel, hepatitis, peptic ulcer disease, splenic infarction, perforated viscus, vulvitis, ovarian torsion, PID, kidney stone, placenta abruption, this is not meant to be an all-inclusive list EKG interpreted by me (3pts min.). @ -None X-rays interpreted by me (1pt min.). @ -None done CT interpreted by me (1pt min.). @ -CT abdomen pelvis showing evidence of left ureteral calculus 3 mm U/S interpreted by me (1pt. min.). @ -None done What testing was considered but not performed or refused? (CT, X-rays, U/S, labs)? Why? @ -None What meds were considered but not given or refused? Why? @ -None Did you discuss the management of the patient with other professionals (professionals i.e. , PA, [employer], lab, RT, psych nurse, mental health social worker, test desk supervisor, teacher, correction officer reformatory, assistant case manager)? Give summary @ -No Was smoking cessation discussed for >3mins.? @ -No Was critical care preformed (if so, how long)? @ -No Were there social determinants of health that impacted care today? How? (Homelessness, low income, unemployed, alcoholism, drug addiction, transportation, low edu. Level, literacy, decrease access to med. care, penitentiary, rehab)? @ -No Was there de-escalation of care discussed even if they declined (Discuss DNR or withdrawal of care, Hospice)? DNR status @ -No What co-morbidities impacted this encounter? (DM, HTN, Smoking, COPD, CAD, Cancer, CVA, ARF, Chemo, Hep., AIDS, mental health diagnosis, sleep apnea, morbid obesity)? @ -None Was patient admitted / discharged? Hospital course, mention meds given and route, prescriptions, significant lab abnormalities, going to OR and other pertinent info. @ -Discharge patient's pain is greatly improved patient updated on CT and lab results. Patient has a kidney stone. Patient discharged in stable condition Undiagnosed new problem with uncertain prognosis? @ -No Drug Therapy requiring intensive monitoring for toxicity (Heparin, Nitro, Insulin, Cardizem)? @ -No Were any procedures done? @ -No Diagnosis/symptom? @ -Kidney stone Acute, or Chronic, or Acute on Chronic? @ -Acute Uncomplicated (without systemic symptoms) or Complicated (systemic symptoms)? @ -Uncomplicated Side effects of treatment? @ -No Exacerbation, Progression, or Severe Exacerbation? @ -No Poses a threat to life or bodily function? How? (Chest pain, [place], [place], pneumonia, PE, COPD, DKA, ARF, appy, cholecystitis, CVA, Diverticulitis, Homicidal, Suicidal, threat to staff... and all critical care pts) @ -No - Lab Data Result diagrams: 01/15/24 09:12 01/15/24 09:12 Lab Results 01/15/24 01/15/24 01/15/24 Range/Units 09:12 09:12 09:12 WBC 10.0 (3.8-10.6) k/uL RBC 5.42 H (3.80-5.40) m/uL Hgb 15.4 (11.4-16.0) gm/dL Hct 46.4 H (34.0-46.0) % MCV 85.5 (80.0-100.0) fL MCH 28.3 (25.0-35.0) pg MCHC 33.1 (31.0-37.0) g/dL RDW 12.2 (11.5-15.5) % Plt Count 402 (150-450) k/uL MPV 6.9 Neutrophils % 77 % Lymphocytes % 14 % Monocytes % 5 % Eosinophils % 2 % Basophils % 1 % Neutrophils # 7.7 (1.3-7.7) k/uL Lymphocytes # 1.4 (1.0-4.8) k/uL Monocytes # 0.5 (0-1.0) k/uL Eosinophils # 0.2 (0-0.7) k/uL Basophils # 0.1 (0-0.2) k/uL Sodium 137 (137-145) mmol/L Potassium 4.2 (3.5-5.1) mmol/L Chloride 110 H (98-107) mmol/L Carbon Dioxide 17 L (22-30) mmol/L Anion Gap 10 mmol/L BUN 16 (7-17) mg/dL Creatinine 0.62 (0.52-1.04) mg/dL Est GFR (CKD-EPI)AfAm >90 (>60 ml/min/1.73 sqM) Est GFR (CKD-EPI)NonAf >90 (>60 ml/min/1.73 sqM) Glucose 201 H (74-99) mg/dL Lactic Ac Sepsis Rflx Plasma Lactic Acid Dexter (0.7-2.0) mmol/L Calcium 10.3 H (8.4-10.2) mg/dL Total Bilirubin 1.1 (0.2-1.3) mg/dL AST 26 (14-36) U/L ALT 28 (4-34) U/L Alkaline Phosphatase 78 (38-126) U/L Total Protein 7.1 (6.3-8.2) g/dL Albumin 4.4 (3.5-5.0) g/dL Lipase 131 (23-300) U/L Urine Color Colorless Urine Appearance Clear (Clear) Urine pH 8.0 (5.0-8.0) Ur Specific [place] 1.019 (1.001-1.035) Urine Protein Negative (Negative) Urine Glucose (UA) 4+ H (Negative) Urine Ketones 1+ H (Negative) Urine Blood Large H (Negative) Urine Nitrite Negative (Negative) Urine Bilirubin Negative (Negative) Urine Urobilinogen <2.0 (<2.0) mg/dL Ur Leukocyte Esterase Negative (Negative) Urine RBC >182 H (0-5) /hpf Urine WBC 3 (0-5) /hpf Ur Squamous Epith Cells 3 (0-4) /hpf Urine Mucus Rare H (None) /hpf 01/15/24 01/15/24 Range/Units 09:12 10:43 WBC (3.8-10.6) k/uL RBC (3.80-5.40) m/uL Hgb (11.4-16.0) gm/dL Hct (34.0-46.0) % MCV (80.0-100.0) fL MCH (25.0-35.0) pg MCHC (31.0-37.0) g/dL RDW (11.5-15.5) % Plt Count (150-450) k/uL MPV Neutrophils % % Lymphocytes % % Monocytes % % Eosinophils % % Basophils % % Neutrophils # (1.3-7.7) k/uL Lymphocytes # (1.0-4.8) k/uL Monocytes # (0-1.0) k/uL Eosinophils # (0-0.7) k/uL Basophils # (0-0.2) k/uL Sodium (137-145) mmol/L Potassium (3.5-5.1) mmol/L Chloride (98-107) mmol/L Carbon Dioxide (22-30) mmol/L Anion Gap mmol/L BUN (7-17) mg/dL Creatinine (0.52-1.04) mg/dL Est GFR (CKD-EPI)AfAm (>60 ml/min/1.73 sqM) Est GFR (CKD-EPI)NonAf (>60 ml/min/1.73 sqM) Glucose (74-99) mg/dL Lactic Ac Sepsis Rflx Y Plasma Lactic Acid Dexter 2.2 H* (0.7-2.0) mmol/L Calcium (8.4-10.2) mg/dL Total Bilirubin (0.2-1.3) mg/dL AST (14-36) U/L ALT (4-34) U/L Alkaline Phosphatase (38-126) U/L Total Protein (6.3-8.2) g/dL Albumin (3.5-5.0) g/dL Lipase (23-300) U/L Urine Color Urine Appearance (Clear) Urine pH (5.0-8.0) Ur Specific [place] (1.001-1.035) Urine Protein (Negative) Urine Glucose (UA) (Negative) Urine Ketones (Negative) Urine Blood (Negative) Urine Nitrite (Negative) Urine Bilirubin (Negative) Urine Urobilinogen (<2.0) mg/dL Ur Leukocyte Esterase (Negative) Urine RBC (0-5) /hpf Urine WBC (0-5) /hpf Ur Squamous Epith Cells (0-4) /hpf Urine Mucus (None) /hpf Disposition Clinical Impression: Left ureteral calculus Disposition: HOME SELF-CARE Condition: Stable Instructions (If sedation given, give patient instructions): Kidney Stones (ED) Additional Instructions: Please return to the Emergency Department if symptoms worsen or any other concerns. Prescriptions: Tamsulosin [Flomax] 0.4 mg PO DAILY #7 cap Ketorolac [Toradol] 10 mg PO Q8HR #15 tab Ondansetron Odt [Zofran Odt] 4 mg PO Q8HR PRN #10 tab PRN Reason: Nausea Is patient prescribed a controlled substance at d/c from ED?: No Referrals: Marcelle Urbina MD [Primary Care Provider] - 1-2 days Joel Zamudio MD [STAFF PHYSICIAN] - 1-2 days Time of Disposition: 11:23
[2024-01-15 10:32] LABS: ALT 28 U/L (4-34); AST 26 U/L (14-36); African American GFR (CKD) >90 (>60 ml/min/1.73 sqM); Albumin 4.4 g/dL (3.5-5.0); Alkaline Phosphatase 78 U/L (38-126); Anion Gap 10 mmol/L; Appearance,Urine Clear (Clear); Bilirubin,Urine Negative (Negative); Blood Urea Nitrogen 16 mg/dL (7-17); Blood,Urine Large (Negative); Calcium 10.3 mg/dL (8.4-10.2); Carbon Dioxide 17 mmol/L (22-30); Chloride 110 mmol/L (98-107); Color,Urine Colorless; Glucose 201 mg/dL (74-99); Glucose,Urine (UA) 4+ (Negative); Ketones,Urine 1+ (Negative); Leukocyte Esterase,Urine Negative (Negative); Lipase 131 U/L (23-300); Mucus,Urine Rare /hpf; Nitrite,Urine Negative (Negative); Non-African American GFR(CKD) >90 (>60 ml/min/1.73 sqM); Potassium 4.2 mmol/L (3.5-5.1); Protein,Urine Negative (Negative); RBC,Urine >182 /hpf (0-5); Sodium 137 mmol/L (137-145); Specific Gravity,Urine 1.019 (1.001-1.035); Squamous Epithelial Cell,Urine 3 /hpf (0-4); Total Bilirubin 1.1 mg/dL (0.2-1.3); Total Protein 7.1 g/dL (6.3-8.2); Urobilinogen,Urine <2.0 mg/dL (<2.0); WBC,Urine 3 /hpf (0-5)
[2024-01-15] MEDS: ACET/COD 300 MG/30 MG STARTER PACK 6 TAB BTL PO STA (11:41)
[2024-01-15 11:51] VITALS: BP 117/91; PULSE 59; RESP 16
== END 2024-01-15 11:51 | disposition home or self-care (01) ==
LOC: EC 08:40
DX: N13.2 Hydronephrosis with renal and ureteral calculous obstruction (principal)
CPT/HCPCS: 36415; 80053; 83605; 83690; 85025; 81001; 74176; 99284; 96374; 96375; 96361 ×2; J2405; J1885